=== PATIENT | male | born 1950 | race Caucasian/White ===

== ENCOUNTER → 2024-02-06 12:39 | Outpatient (REF) | payer MEDICARE, OTHER, SELFPAY | LOC: RCS 12:39 | PROVIDERS: ATTENDING PHYSICIAN Internal Medicine Cardiovascular Disease; FAMILY PHYSICIAN Family Medicine | DX: I48.0 Paroxysmal atrial fibrillation (principal); I25.10 Atherosclerotic heart disease of native coronary artery without angina pectoris; I10 Essential (primary) hypertension; E78.2 Mixed hyperlipidemia; R06.09 Other forms of dyspnea | CPT/HCPCS: 93017; 93350 ==